=== PATIENT | female | born 1970 | race Caucasian/White ===

== ENCOUNTER → 2019-10-25 | Outpatient (CLI) | payer BC ==
--- NOTE | 2019-10-25 14:39 | Diagnostic Imaging Report ---
Indication: Reactive airway disease PA and lateral chest Heart size and pulmonary vascularity are normal. Lungs are clear. There are no effusions or pneumothoraces. IMPRESSION: Negative chest Dictated by: Dictated on workstation # [id number]
== END ==
LOC: RAD FS 14:01
PROVIDERS: ATTEND Nurse Practitioner Family
DX: J45.909 Unspecified asthma, uncomplicated (principal)
CPT/HCPCS: 71046